=== PATIENT | male | born 1975 | race Two or more races ===

== ENCOUNTER 2020-09-24 07:58 | Inpatient (IN) | payer BC, OTHER ==
[~2020-09-24] VITALS: Ht 172.7 cm; Wt 114.4 kg
[2020-09-24] MEDS ORDERED: dilTIAZem 25 MG/5 ML VIAL IV ONE ×2 (08:06→08:15)
[2020-09-24] MEDS ORDERED: SODIUM CHLORIDE 0.9% 1,000 ML IV ONE (08:15)
[2020-09-24] MEDS ORDERED: DIGOXIN 0.25 MG TAB PO ONE (08:15)
[2020-09-24] MEDS ORDERED: ASPirin 81 mg TAB PO ONE (08:15)
[2020-09-24] MEDS ORDERED: dilTIAZem 125mg/125ml BAG KIT 125 ML IV ONE (08:15)
[2020-09-24 08:19] LABS: Basophils # (auto) 0 10 ^3/uL (0-0.2); Basophils % (auto) 0.7 % (0.0-2.0); Eosinophils # (auto) 0 10 ^3/uL (0-0.8); Eosinophils % (auto) 0.6 % (0.0-7.0); Hematocrit 44.7 % (41.0-53.0); Hemoglobin 15.4 g/dL (13.5-17.5); Lymphocytes % (auto) 28.4 % (10.0-50.0); Mean Corpuscular Hemoglobin 28.8 pg (28.0-32.0); Mean Corpuscular Hgb Conc. 34.5 g/dL (32.0-36.0); Mean Corpuscular Volume 83.7 fL (80.0-100.0); Monocytes # (auto) 0.9 10 ^3/uL (0-1.3); Monocytes % (auto) 12.8 % (0.0-12.0); Neutrophils # (auto) 4.1 10 ^3/uL (1.6-8.6); Neutrophils % (auto) 57.5 % (37.0-80.0); Nucleated Red Blood Cells % 0.2 %; Platelet Count (auto) 221 10^3/uL (140-450); Red Blood Cells 5.34 10^6/uL (4.5-5.90); Red Cell Distribution Width 12.6 % (11.8-14.3); White Blood Cell 7.1 10^3/uL (4.4-10.8)
[2020-09-24 08:36] LABS: Albumin 3.1 g/dL (3.4-5.0); Anion Gap 7 (5-15); Blood Urea Nitrogen 13 mg/dL (7-18); Calcium 8.6 mg/dL (8.5-10.1); Carbon Dioxide 26 mmol/L (21-32); Chloride 102 mmol/L (98-107); Glucose 160 mg/dL (74-106); Potassium 3.8 mmol/L (3.5-5.1); Sodium 135 mmol/L (136-145)
[2020-09-24 08:44] LABS: Alanine Aminotransferase 27 U/L (16-61); Alkaline Phosphatase 83 U/L (45-117); Aspartate Aminotransferase 11 U/L (15-37); BUN/Creatinine Ratio 12.7; Bilirubin, Total 0.4 mg/dL (0.2-1.0); GFR African American 103 mL/min; GFR Non-African American 85 mL/min; Lactate Dehydrogenase 181 U/L (87-241); Total Protein 7.4 g/dL (6.4-8.2)
[2020-09-24 08:48] LABS: INR 1.12 (0.9-1.15); Partial Thromboplastin Time 30.8 sec (23.0-31.2)
[2020-09-24 09:23] LABS: Urine Bacteria NONE SEEN /hpf (None Seen); Urine Blood Negative /uL (Negative); Urine Specific Gravity 1.011 (1.001-1.035); Urine WBC <1 /hpf (0 - 3)
[2020-09-24] MEDS: PHENYLEPHRINE IV 250 ML IV SCH ×2 (09:45→18:05)
[2020-09-24] MEDS: AMIODARONE HCL 150 MG in D5W 5% 100 ML IV ONE ×2 (10:00→11:54)
[2020-09-24] MEDS: AMIODARONE 450mg/250ml AE 250 ML IV SCH ×3 (10:15→18:45)
[2020-09-24] MEDS ORDERED: DOCUSATE SOD 100 MG CAP PO PRN (10:45)
[2020-09-24] MEDS ORDERED: ONDANSETRON HCL 4 MG/2 ML VIAL IV PRN (10:45)
[2020-09-24] MEDS ORDERED: NITROGLYCERIN 0.4 MG SL TAB SL PRN (10:45)
[2020-09-24] MEDS ORDERED: DEXTROSE (50%) 50ML SYRG IV PRN (10:45)
[2020-09-24] MEDS ORDERED: MORPHINE SULF INJ 2 MG/ML SYRINGE 1ML IV PRN ×2 (10:45)
[2020-09-24] MEDS ORDERED: ACETAMINOPHEN 500 MG TAB PO PRN (10:45)
[2020-09-24 11:15] LABS: Alcohol, Urine < 3.0 mg/dL (0-10); Amphetamine Screen, Urine NEGATIVE (NEGATIVE); Barbiturate Scree,Urine NEGATIVE (NEGATIVE); Benzodiazephine Screen, Urine NEGATIVE (NEGATIVE); Cannabinoid Screen, Urine POSITIVE (NEGATIVE); Cocaine Screen, Urine NEGATIVE (NEGATIVE); Opiate Scree,Urine NEGATIVE (NEGATIVE)
[2020-09-24 11:23] LABS: Phencyclidine Screen, Urine NEGATIVE (NEGATIVE)
[2020-09-24] MEDS: SODIUM CHLORIDE 0.9% 1,000 ML IV SCH ×2 (11:25→19:33)
[2020-09-24] MEDS ORDERED: AMIODARONE HCL (50 MG/ ML) 3 ML VIAL IV ONE (11:48)
[2020-09-24] MEDS: InsuLIN REG 1unit/0.01ml Soln (100units/ml) SC SCH ×3 (12:01→21:04)
[2020-09-24] MEDS: ACCU-CHEK COMFORT CURVE STRIP VI SCH ×3 (12:01→21:09)
[2020-09-24] MEDS: DIGOXIN (250MCG/ML) 2 ML AMPULE IV SCH ×2 (17:45→23:00)
[2020-09-24] MEDS: DOXYCYCLINE 100 MG TAB/CAP PO SCH (21:03)
[2020-09-24] MEDS: ENOXAPARIN SOD 40 MG/0.4 ML SYRINGE SC SCH (21:09)
[2020-09-25] MEDS ORDERED: DIGOXIN (250MCG/ML) 2 ML AMPULE ONE (01:21)
[2020-09-25] MEDS: PHENYLEPHRINE IV 250 ML IV SCH ×3 (01:27→20:03)
[2020-09-25] MEDS: SODIUM CHLORIDE 0.9% 1,000 ML IV SCH (04:47)
[2020-09-25 05:32] LABS: Basophils # (auto) 0 10 ^3/uL (0-0.2); Basophils % (auto) 0.3 % (0.0-2.0); Eosinophils # (auto) 0.1 10 ^3/uL (0-0.8); Eosinophils % (auto) 1.3 % (0.0-7.0); Hematocrit 42.5 % (41.0-53.0); Hemoglobin 14.7 g/dL (13.5-17.5); Lymphocytes # (auto) 1.5 10 ^3/uL (0.4-5.4); Lymphocytes % (auto) 25.5 % (10.0-50.0); Mean Corpuscular Hemoglobin 29.4 pg (28.0-32.0); Mean Corpuscular Hgb Conc. 34.6 g/dL (32.0-36.0); Monocytes # (auto) 0.6 10 ^3/uL (0-1.3); Monocytes % (auto) 10.5 % (0.0-12.0); Neutrophils # (auto) 3.6 10 ^3/uL (1.6-8.6); Neutrophils % (auto) 62.4 % (37.0-80.0); Nucleated Red Blood Cells % 0.1 %; Platelet Count (auto) 211 10^3/uL (140-450); Red Cell Distribution Width 12.7 % (11.8-14.3); White Blood Cell 5.7 10^3/uL (4.4-10.8)
[2020-09-25 05:51] LABS: Chloride 105 mmol/L (98-107); Potassium 3.8 mmol/L (3.5-5.1); Sodium 136 mmol/L (136-145)
[2020-09-25] MEDS: ACCU-CHEK COMFORT CURVE STRIP VI SCH ×4 (05:53→21:47)
[2020-09-25] MEDS: InsuLIN REG 1unit/0.01ml Soln (100units/ml) SC SCH ×4 (05:53→21:54)
[2020-09-25 06:01] LABS: Alanine Aminotransferase 23 U/L (16-61); Albumin 2.9 g/dL (3.4-5.0); Alkaline Phosphatase 78 U/L (45-117); Anion Gap 5 (5-15); Aspartate Aminotransferase 12 U/L (15-37); BUN/Creatinine Ratio 11.9; Bilirubin, Total 0.4 mg/dL (0.2-1.0); Blood Urea Nitrogen 10 mg/dL (7-18); Calcium 8.1 mg/dL (8.5-10.1); Carbon Dioxide 26 mmol/L (21-32); Cholesterol 128 mg/dL (< 200); GFR African American 128 mL/min; GFR Non-African American 106 mL/min; Glucose 123 mg/dL (74-106); HDL Cholesterol 28 mg/dL (40-59); LDL Cholesterol 88 mg/dL (< 100); Total Protein 7.4 g/dL (6.4-8.2); Triglycerides 179 mg/dL (< 150)
[2020-09-25] MEDS: DexAMETHasone SOD PHOS 10MG/1ML VIAL INJ IV SCH (07:47)
[2020-09-25] MEDS: DIGOXIN 0.125 MG TAB PO SCH (07:47)
[2020-09-25] MEDS: ASPirin 81 mg TAB PO SCH (07:47)
[2020-09-25] MEDS: ZINC SULFATE 220mg CAP or TAB PO SCH (07:47)
[2020-09-25] MEDS: ASCORBIC ACID 1,000 MG TAB PO SCH (07:48)
[2020-09-25] MEDS: CHOLECALCIFEROL (VITD3) 2,000 UNIT CAP/TAB PO SCH (07:48)
[2020-09-25] MEDS: FAMOTIDINE 20 MG TAB PO SCH (07:48)
[2020-09-25] MEDS: ENOXAPARIN SOD 40 MG/0.4 ML SYRINGE SC SCH ×2 (07:48→21:47)
[2020-09-25] MEDS: DOXYCYCLINE 100 MG TAB/CAP PO SCH ×2 (07:48→21:46)
[2020-09-25] MEDS: AMIODARONE 450mg/250ml AE 250 ML IV SCH (09:45)
[2020-09-25] MEDS ORDERED: REMDESIVIR PER PHARMACY 0 ML IV SCH (10:15)
[2020-09-25] MEDS ORDERED: AMIODARONE HCL 200 MG TAB PO ONE (10:45)
[2020-09-25] MEDS ORDERED: REMDESIVIR 200 MG in NS 210ml LOADING DOSE ADULT IV ONE (15:00)
[2020-09-25 15:30] VITALS: BP 112/63
[2020-09-25] MEDS ORDERED: METF-372 PO (15:32)
[2020-09-25 16:02] VITALS: BP 112/63
[2020-09-25 20:00] VITALS: BP 116/73
[2020-09-25] MEDS: AMIODARONE HCL 200 MG TAB PO SCH (21:47)
[2020-09-25 22:00] VITALS: BP 132/82
[2020-09-25] MEDS: HYDROcodone-ACET 5/325MG TAB PO PRN (22:14)
[2020-09-26] MEDS: AMIODARONE 450mg/250ml AE 250 ML IV SCH (00:45)
[2020-09-26] MEDS: PHENYLEPHRINE IV 250 ML IV SCH ×2 (03:08→11:45)
[2020-09-26 05:00] VITALS: BP 136/83
[2020-09-26] MEDS: InsuLIN REG 1unit/0.01ml Soln (100units/ml) SC SCH ×4 (06:00→21:32)
[2020-09-26] MEDS: ACCU-CHEK COMFORT CURVE STRIP VI SCH ×4 (06:00→21:28)
[2020-09-26 06:59] LABS: Potassium 3.9 mmol/L (3.5-5.1)
[2020-09-26] MEDS: HYDROcodone-ACET 5/325MG TAB PO PRN (07:01)
[2020-09-26 07:06] LABS: Albumin 3.3 g/dL (3.4-5.0); BUN/Creatinine Ratio 15.4; Bilirubin, Total 0.5 mg/dL (0.2-1.0); Calcium 8.9 mg/dL (8.5-10.1); Total Protein 8.4 g/dL (6.4-8.2)
[2020-09-26 09:00] VITALS: BP 111/65
[2020-09-26] MEDS: ASPirin 81 mg TAB PO SCH (09:08)
[2020-09-26] MEDS: DexAMETHasone SOD PHOS 10MG/1ML VIAL INJ IV SCH (09:08)
[2020-09-26] MEDS: ZINC SULFATE 220mg CAP or TAB PO SCH (09:08)
[2020-09-26] MEDS: AMIODARONE HCL 200 MG TAB PO SCH (09:12)
[2020-09-26] MEDS: DIGOXIN 0.125 MG TAB PO SCH (09:13)
[2020-09-26] MEDS: FAMOTIDINE 20 MG TAB PO SCH (09:13)
[2020-09-26] MEDS: CHOLECALCIFEROL (VITD3) 2,000 UNIT CAP/TAB PO SCH (09:14)
[2020-09-26] MEDS: ASCORBIC ACID 1,000 MG TAB PO SCH (09:14)
[2020-09-26] MEDS: DOXYCYCLINE 100 MG TAB/CAP PO SCH ×2 (09:14→21:27)
[2020-09-26] MEDS: ENOXAPARIN SOD 40 MG/0.4 ML SYRINGE SC SCH (09:15)
[2020-09-26] MEDS ORDERED: APIXABAN 5 MG TAB PO SCH (10:00)
[2020-09-26 13:00] VITALS: BP 110/71
[2020-09-26] MEDS: REMDESIVIR 100mg 100 MG in SODIUM CHL 0.9% 230 ML IV SCH (16:28)
[2020-09-26 17:00] VITALS: BP 113/69
[2020-09-26 19:40] VITALS: BP 104/64
[2020-09-26 22:00] VITALS: BP 109/62
[2020-09-26] MEDS ORDERED: ATORVASTATIN 20 MG TAB PO SCH (22:00)
[2020-09-27 05:00] VITALS: BP 108/76
[2020-09-27] MEDS: ACCU-CHEK COMFORT CURVE STRIP VI SCH ×2 (06:25→11:38)
[2020-09-27] MEDS: InsuLIN REG 1unit/0.01ml Soln (100units/ml) SC SCH ×2 (06:25→11:40)
[2020-09-27 06:48] LABS: Potassium 3.8 mmol/L (3.5-5.1)
[2020-09-27 06:56] LABS: Albumin 3.1 g/dL (3.4-5.0); BUN/Creatinine Ratio 20.5; Bilirubin, Total 0.3 mg/dL (0.2-1.0); Calcium 9.2 mg/dL (8.5-10.1); Total Protein 7.4 g/dL (6.4-8.2)
[2020-09-27 08:00] VITALS: BP 102/65
[2020-09-27] MEDS ORDERED: ASPI-378 PO (10:16)
[2020-09-27] MEDS ORDERED: ATOR40TA52 PO (10:17)
[2020-09-27] MEDS ORDERED: METH4PAK PO (10:18)
[2020-09-27] MEDS: DexAMETHasone SOD PHOS 10MG/1ML VIAL INJ IV SCH (10:19)
[2020-09-27] MEDS: ZINC SULFATE 220mg CAP or TAB PO SCH (10:19)
[2020-09-27] MEDS: ASPirin 81 mg TAB PO SCH (10:19)
[2020-09-27] MEDS ORDERED: CHOL1CAP47 PO (10:20)
[2020-09-27] MEDS: FAMOTIDINE 20 MG TAB PO SCH (10:20)
[2020-09-27] MEDS ORDERED: DOX100T PO (10:20)
[2020-09-27] MEDS: DOXYCYCLINE 100 MG TAB/CAP PO SCH (10:21)
[2020-09-27] MEDS: CHOLECALCIFEROL (VITD3) 2,000 UNIT CAP/TAB PO SCH (10:21)
[2020-09-27] MEDS: ASCORBIC ACID 1,000 MG TAB PO SCH (10:21)
[2020-09-27 12:00] VITALS: BP 112/71
[2020-09-27] MEDS ORDERED: POTA10TA51 PO (13:20)
[2020-09-27] MEDS ORDERED: FURO20TA3 PO (13:20)
[2020-09-27 14:47] VITALS: BP 112/71
[2020-09-27] MEDS: REMDESIVIR 100mg 100 MG in SODIUM CHL 0.9% 230 ML IV SCH (15:21)
[2020-09-27 16:00] VITALS: BP 113/58
== END 2020-09-27 18:04 | disposition home or self-care (01) | DRG 308 ==
LOC: EDBD 07:58 → ER 07:58 → TELE 07:59 → TELE-WESTW 09-25 14:49
PROVIDERS: ADMIT Nurse Practitioner Acute Care; ATTEND Internal Medicine Nephrology
PROC: XW033E5 Introduction of Remdesivir Anti-infective into Peripheral Vein, Percutaneous Approach, New Technology Group 5 (ICD-10-PCS; principal; 2020-09-25)
DX: I48.0 Paroxysmal atrial fibrillation (principal); I50.31 Acute diastolic (congestive) heart failure; J12.82 Pneumonia due to coronavirus disease 2019; J96.01 Acute respiratory failure with hypoxia; U07.1 COVID-19; D89.839 Cytokine release syndrome, grade unspecified; E66.9 Obesity, unspecified; E78.5 Hyperlipidemia, unspecified; F12.90 Cannabis use, unspecified, uncomplicated; F41.9 Anxiety disorder, unspecified; E11.9 Type 2 diabetes mellitus without complications; Z79.82 Long term (current) use of aspirin; Z79.84 Long term (current) use of oral hypoglycemic drugs; Z79.899 Other long term (current) drug therapy; Z68.38 Body mass index [BMI] 38.0-38.9, adult
CPT/HCPCS: 36415; 70450; 71045; 80053; 80061; 80307; 81001; 82728; 82962; 83036; 83605; 83615; 83735; 84443; 84484; 85025; 85379; 85610; 85730; 86141; 87040; 87426; 87804; 93005; 93306; 96361; 96374; 99291; G0378; J1100; J1815; J2405; J7060